=== PATIENT | female | born 1980 | race Two or more races ===

== ENCOUNTER → 2024-09-10 | Outpatient (CLI) | payer MEDICAID, SELFPAY ==
[2024-09-09 17:58] LABS: HCG Qualitative,Urine Negative
--- NOTE | 2024-09-10 17:00 | XR_ITS ---
Examination: MRI brain with intravenous contrast Technique: Axial sagittal coronal brain MRI images post intravenous administration 16 cc gadolinium obtained Exam date and time: September 10, 2024 1707 hrs. 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
== END | disposition home or self-care (01) ==
PROVIDERS: PCP Physician Assistant; Referring Provider Physician Assistant; Visit Provider Physician Assistant
DX: D35.2 Benign neoplasm of pituitary gland (principal); Z32.00 Encounter for pregnancy test, result unknown
CPT/HCPCS: 70552; 81025; A9579